=== PATIENT | female | born 1940 | race African-American/Black ===

== ENCOUNTER 2017-02-18 12:10 | Observation (INO) | payer MEDICARE, OTHER ==
[~2017-02-18] VITALS: Ht 175.3 cm; Wt 56.3 kg
[~2017-02-18 12:10] MED LIST: DOXY100T PO; HYDR0.2C3 TOP; SULF1TAB47 PO; Z.0.NO CURRENT MEDS
[2017-02-18 12:12] VITALS: BP 122/64; PULSE 94; RESP 20; TEMP 98.9; O2SAT 98
--- NOTE | 2017-02-18 12:16 | PD ---
Physical Exam Time Seen by Provider: 12:15 Narrative 76 y/o female here for evaluation of hemoptysis, urinary incontinence for 1-[address] Ortiz. Vital signs reviewed. Seen at triage desk. Awaiting bed placement. Data Data Last Documented VS Vital Signs Date Time Temp Pulse Resp B/P Pulse Ox O2 Delivery O2 Flow Rate FiO2 02/18/17 13:00 85 18 108/66 100 Room Air 02/18/17 12:12 98.9 Orders Complete Blood Count With Diff (02/18/17 12:25) Comprehensive Metabolic Panel (02/18/17 12:25) Act Partial Throm Time (Ptt) (02/18/17 12:25) Prothrombin Time / Inr (Pt) (02/18/17 12:25) Blood Culture (02/18/17 12:25) Iv Access Insert/Monitor (02/18/17 12:25) Ecg Monitoring (02/18/17 12:25) Oximetry (02/18/17 12:25) Oxygen Administration (02/18/17 12:25) Chest, Single Ap (02/18/17 12:25) Sodium Chloride 0.9% Flush (Ns Flush) (02/18/17 12:30) Labs Laboratory Tests Test 02/18/17 12:30 White Blood Count 13.5 TH/MM3 Red Blood Count 4.55 MIL/MM3 Hemoglobin 11.5 GM/DL Hematocrit 35.4 % Mean Corpuscular Volume 77.9 FL Mean Corpuscular Hemoglobin 25.2 PG Mean Corpuscular Hemoglobin 32.4 % Concent Red Cell Distribution Width 15.1 % Platelet Count 504 TH/MM3 Mean Platelet Volume 6.7 FL Neutrophils (%) (Auto) 72.9 % Lymphocytes (%) (Auto) 19.8 % Monocytes (%) (Auto) 6.8 % Eosinophils (%) (Auto) 0.2 % Basophils (%) (Auto) 0.3 % Neutrophils # (Auto) 9.9 TH/MM3 Lymphocytes # (Auto) 2.7 TH/MM3 Monocytes # (Auto) 0.9 TH/MM3 Eosinophils # (Auto) 0.0 TH/MM3 Basophils # (Auto) 0.0 TH/MM3 CBC Comment DIFF FINAL Differential Comment MDM Medical Record Reviewed: Yes Supervised Visit with GLORIA: No Scripts No Active Prescriptions or Reported Meds Adrian Remy Feb 18, 2017 12:16
[2017-02-18 12:30] VITALS: O2SAT 100
--- NOTE | 2017-02-18 12:32 | PD ---
HPI Chief Complaint: Bleeding Time Seen by Provider: 12:25 Travel History International Travel<30 days: No Contact w/Intl Traveler<30days: No Traveled to known affect area: No History of Present Illness HPI 76-year-old female patient presents to the ER sent in by Dr. Ortiz, according to her son, she has been coughing up blood for several days and had initially had chest x-ray done and then a CT of the chest for follow-up, and he was told that there was some abnormality with her chest. However, he is not aware of what is the problem. She has been feeling more tired than usual. She denies any chest pains, fevers, or any other symptoms. Modifying Factors: None Associated Signs & Symptoms: Hemoptysis, abnormal chest x-ray Risk Factors: None PFSH Past Medical History High Cholesterol: Yes Hypertension: Yes Social History Alcohol Use: No Tobacco Use: No Substance Use: No Allergies-Medications (Allergen,Severity, Reaction): Coded Allergies: No Known Allergies (Verified , 02/18/17) Reported Meds & Prescriptions Reported Meds & Active Scripts Active No Active Prescriptions or Reported Medications Review of Systems Except as stated in HPI: all other systems reviewed are Neg Physical Exam Narrative GENERAL: Well-developed elderly -[place] female patient currently in mild distress. Awake and oriented 3. SKIN: Focused skin assessment warm/dry. HEAD: Atraumatic. Normocephalic. EYES: Pupils equal and round. No scleral icterus. No injection or drainage. ENT: No nasal bleeding or discharge. Mucous membranes pink and moist. NECK: Trachea midline. No JVD. CARDIOVASCULAR: Regular rate and rhythm. No murmur appreciated. RESPIRATORY: No accessory muscle use. Clear to auscultation. Breath sounds equal bilaterally. GASTROINTESTINAL: Abdomen soft, non-tender, nondistended. Hepatic and splenic margins not palpable. MUSCULOSKELETAL: No obvious deformities. No clubbing. No cyanosis. No edema. NEUROLOGICAL: Awake and alert. No obvious cranial nerve deficits. Motor grossly within normal limits. Normal speech. PSYCHIATRIC: Appropriate mood and affect; insight and judgment normal. Data Data Last Documented VS Vital Signs Date Time Temp Pulse Resp B/P Pulse Ox O2 Delivery O2 Flow Rate FiO2 02/18/17 13:00 85 18 108/66 100 Room Air 02/18/17 12:12 98.9 Orders Complete Blood Count With Diff (02/18/17 12:25) Comprehensive Metabolic Panel (02/18/17 12:25) Act Partial Throm Time (Ptt) (02/18/17 12:25) Prothrombin Time / Inr (Pt) (02/18/17 12:25) Blood Culture (02/18/17 12:25) Iv Access Insert/Monitor (02/18/17 12:25) Ecg Monitoring (02/18/17 12:25) Oximetry (02/18/17 12:25) Oxygen Administration (02/18/17 12:25) Chest, Single Ap (02/18/17 12:25) Sodium Chloride 0.9% Flush (Ns Flush) (02/18/17 12:30) Ceftriaxone Inj (Rocephin Inj) (02/18/17 13:46) Azithromycin Inj (Zithromax Inj) (02/18/17 13:46) Labs Laboratory Tests Test 02/18/17 12:30 White Blood Count 13.5 TH/MM3 Red Blood Count 4.55 MIL/MM3 Hemoglobin 11.5 GM/DL Hematocrit 35.4 % Mean Corpuscular Volume 77.9 FL Mean Corpuscular Hemoglobin 25.2 PG Mean Corpuscular Hemoglobin 32.4 % Concent Red Cell Distribution Width 15.1 % Platelet Count 504 TH/MM3 Mean Platelet Volume 6.7 FL Neutrophils (%) (Auto) 72.9 % Lymphocytes (%) (Auto) 19.8 % Monocytes (%) (Auto) 6.8 % Eosinophils (%) (Auto) 0.2 % Basophils (%) (Auto) 0.3 % Neutrophils # (Auto) 9.9 TH/MM3 Lymphocytes # (Auto) 2.7 TH/MM3 Monocytes # (Auto) 0.9 TH/MM3 Eosinophils # (Auto) 0.0 TH/MM3 Basophils # (Auto) 0.0 TH/MM3 CBC Comment DIFF FINAL Differential Comment Prothrombin Time 10.7 SEC Prothromb Time International 1.0 RATIO Ratio Activated Partial 27.3 SEC Thromboplast Time Sodium Level 137 MEQ/L Potassium Level 3.8 MEQ/L Chloride Level 103 MEQ/L Carbon Dioxide Level 27.3 MEQ/L Anion Gap 7 MEQ/L Blood Urea Nitrogen 7 MG/DL Creatinine 0.71 MG/DL Estimat Glomerular Filtration 97 ML/MIN Rate Random Glucose 107 MG/DL Calcium Level 9.3 MG/DL Total Bilirubin 0.5 MG/DL Aspartate Amino Transf 10 U/L (AST/SGOT) Alanine Aminotransferase 10 U/L (ALT/SGPT) Alkaline Phosphatase 136 U/L Total Protein 7.5 GM/DL Albumin 3.0 GM/DL MDM Medical Decision Making Medical Screen Exam Complete: Yes Emergency Medical Condition: Yes Medical Record Reviewed: Yes Interpretation(s) Laboratory Tests Test 02/18/17 12:30 White Blood Count 13.5 TH/MM3 (4.0-11.0) Hemoglobin 11.5 GM/DL (11.6-15.3) Mean Corpuscular Volume 77.9 FL (80.0-100.0) Mean Corpuscular Hemoglobin 25.2 PG (27.0-34.0) Platelet Count 504 TH/MM3 (150-450) Mean Platelet Volume 6.7 FL (7.0-11.0) Neutrophils (%) (Auto) 72.9 % (16.0-70.0) Neutrophils # (Auto) 9.9 TH/MM3 (1.8-7.7) Random Glucose 107 MG/DL (74-106) Aspartate Amino Transf 10 U/L (15-37) (AST/SGOT) Alkaline Phosphatase 136 U/L (45-117) Albumin 3.0 GM/DL (3.4-5.0) Last 24 hours Impressions Chest X-Ray 02/18/17 1225 Signed Impressions: Service Date/Time: Saturday, February 18, 2017 12:33 - CONCLUSION: 1. 6.7 x 6.6 cm mass on the right. Differential considerations are given above. CT imaging with contrast is warranted for further assessment. Adonis Hutchison MD Differential Diagnosis Hemoptysispneumonia versus bronchitis versus PE versus other acute pulmonary processes Narrative Course Chest x-ray shows a right sided pulmonary mass. A review of patient's Watson exam shows that a CTA had been done last week that shows that this is a mass rather than a aneurysm. She does have a white count of 13 and at this point, IV antibiotics were initiated as a precaution. My plan would be to admit the patient for further evaluation of mass. Case is discussed with Dr. Tiwari for admission. Diagnosis Primary Impression: Pulmonary mass Additional Impression: Pneumonia Admitting Information Admitting Physician Requests: Admit Scripts No Active Prescriptions or Reported Meds Jennifer Lundberg MD Feb 18, 2017 12:32
[2017-02-18 13:00] VITALS: BP 108/66; PULSE 85; RESP 18; O2SAT 100
--- NOTE | 2017-02-18 13:05 | RADRPT ---
EXAM DATE/TIME: 02/18/2017 12:33 [facility] COMPARISON: No previous studies available for comparison. INDICATIONS : Cough. patient has been coughing up blood on and off for the past three weeks. MEDICAL HISTORY : Hypertension. Hypercholesterolemia. SURGICAL HISTORY : None. ENCOUNTER: Initial ACUITY: 3 weeks PAIN SCORE: 0/10 LOCATION: Bilateral chest FINDINGS: The examination demonstrates a smoothly margined 6.7 x 6.6 cm right paratracheal mass. Differential c onsiderations would include malignancy versus aneurysm. CT of the thorax with contrast is warranted f or further assessment. The lungs are otherwise clear. The heart is normal in size. CONCLUSION: 1. 6.7 x 6.6 cm mass on the right. Differential considerations are given above. CT imaging with contr ast is warranted for further assessment. Adonis Hutchison MD on February 18, 2017 at 13:02 Board Certified Radiologist. This report was verified electronically.
[2017-02-18 13:10] LABS: AUTOMATED NEUTROPHIL # 9.9 TH/MM3 (1.8-7.7); BASOPHIL % 0.3 % (0.0-2.0); EOSINOPHIL % 0.2 % (0.0-4.0); HEMATOCRIT 35.4 % (35.0-46.0); HEMO FLAGS DIFF FINAL; LYMPH % 19.8 % (9.0-44.0); LYMPHOCYTE # 2.7 TH/MM3 (1.0-4.8); MEAN CELL VOLUME 77.9 FL (80.0-100.0); MEAN CORPUSCULAR HEMOGLOBIN 25.2 PG (27.0-34.0); MEAN CORPUSCULAR HGB CONC 32.4 % (32.0-36.0); MONO % 6.8 % (0.0-8.0); NEUT % 72.9 % (16.0-70.0); PLATELET COUNT 504 TH/MM3 (150-450); RED BLOOD COUNT 4.55 MIL/MM3 (4.00-5.30); RED CELL DISTRIBUTION WIDTH 15.1 % (11.6-17.2); WHITE BLOOD COUNT 13.5 TH/MM3 (4.0-11.0)
[2017-02-18 13:20] LABS: APTT (PATIENT) 27.3 SEC (24.3-30.1); PROTHROMBIN TIME - PATIENT 10.7 SEC (9.8-11.6)
[2017-02-18 13:28] LABS: ANION GAP 7 MEQ/L (5-15); AST (GOT) 10 U/L (15-37); BICARBONATE 27.3 MEQ/L (21.0-32.0); BLOOD UREA NITROGEN 7 MG/DL (7-18); CHLORIDE 103 MEQ/L (98-107); GLOMERULAR FILTRATION RATE 97 ML/MIN (>89); POTASSIUM 3.8 MEQ/L (3.5-5.1); SODIUM (NA) 137 MEQ/L (136-145)
[2017-02-18 13:29] LABS: ALT (GPT) 10 U/L (10-53)
[2017-02-18 13:31] LABS: ALKALINE PHOSPHATASE 136 U/L (45-117); TOTAL BILIRUBIN ADULT 0.5 MG/DL (0.2-1.0)
[2017-02-18] MEDS ORDERED: AZITHROMYCIN INJ 500 MG in SODIUM CHLOR 0.9% 250 ML INJ 250 ML IV STA (13:46)
[2017-02-18] MEDS ORDERED: cefTRIAXone INJ 2,000 MG in SODIUM CHLORIDE 0.9% INJ 100 ML IV STA (13:46)
--- NOTE | 2017-02-18 15:23 | HHI.HP ---
[facility] Guillermo Ortiz MD Admission Diagnosis pulmonary mass/pneumonia Diagnoses: (1) Hemoptysis Diagnosis: Principal (2) Pulmonary mass Diagnosis: Principal Chief Complaint: Hemoptysis Travel History International Travel<30 Days: No Contact w/Intl Traveler <30 Da: No Traveled to Known Affected Are: No History of Present Illness Patient is a very pleasant 76-year-old female with baseline dementia. Patient' s daughter states her knee followed some commands, but unable to obtain history from her. Called up the son who states that prior to this past 3 weeks patient was pretty independent taking care of herself but noticed that this past 2 weeks as stated is deteriorating. Son stated that patient was noted to be coughing up blood on and off for the past 2 weeks now describe the sputum with specks of blood. She was seen as an outpatient with her primary care physician for she was treated with some cough medications. Son stated no fever or chills no night sweats.. An x-ray was done 2 weeks ago which showed some suspicious mass and she was sent to [facility] for a chest CT. We are able to obtain a chest CT from [facility] faxed to us and it showed a 6.7 x 5.3 cm soft tissue mass in the right upper lobe abutting the visceral pleural. sounds like questionable by Patient was brought in here by son because of increasing generalized weakness and hemoptysis. He also described that patient has been incontinent this past few days. Patient now admitted for further workup. And management. CT of the thorax with contrast done on February 14 shows 6.7 x 5.3 cm soft tissue mass in the right upper lobe with early cavitation both superiorly and inferiorly. Pneumonia versus malignancy as differential. numerous small tendrils extend to the visceral pleura. 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 1.1 cm right paratracheal lymph node. No evidence of pleural effusion. Review of Systems ROS Limitations: Poor Historian Constitutional: DENIES: Diaphoretic episodes, Fatigue, Fever, Weight gain, Weight loss, Chills, Dizziness, Change in appetite, Night Sweats Endocrine: DENIES: Abnorml menstrual pattern, Heat/cold intolerance, Polydipsia , Polyuria, Polyphagia Eyes: DENIES: Blurred vision, Diplopia, Eye inflammation, Eye pain, Vision loss , Photosensitivity, Double Vision Ears, nose, mouth, throat: DENIES: Tinnitus, Hearing loss, Vertigo, Nasal discharge, Oral lesions, Throat pain, Hoarseness, Ear Pain, Running Nose, Epistaxis, Sinus Pain, Toothache, Odynophagia Respiratory: COMPLAINS OF: Cough, Hemoptysis Cardiovascular: DENIES: Chest pain, Palpitations, Syncope, Dyspnea on Exertion , PND, Lower Extremity Edema, Orthopnea, Claudication Gastrointestinal: DENIES: Abdominal pain, Black stools, Bloody stools, Constipation, Diarrhea, Nausea, Vomiting, Difficulty Swallowing, Anorexia Genitourinary: COMPLAINS OF: Urinary incontinence Musculoskeletal: DENIES: Joint pain, Muscle aches, Stiffness, Joint Swelling, Back pain, Neck pain Integumentary: DENIES: Abnormal pigmentation, Pruritus, Rash, Nail changes, Breast masses, Breast skin changes, Nipple discharge Hematologic/lymphatic: DENIES: Bruising, Lymphadenopathy Immunologic/allergic: DENIES: Eczema, Urticaria Neurologic: COMPLAINS OF: Abnormal gait (generalized weakness) Psychiatric: DENIES: Anxiety, Confusion, Mood changes, Depression, Hallucinations, Agitation, Suicidal Ideation, Homicidal Ideation, Delusions Past Family Social History Past Medical History None Past Surgical History No major surgeries Reported Medications [id number] multivitamins Allergies: Coded Allergies: No Known Allergies (Verified , 02/18/17) Family History Noncontributory Social History History of smoking Denies alcohol or substance abuse Physical Exam Vital Signs Vital Signs Date Time Temp Pulse Resp B/P Pulse Ox O2 Delivery O2 Flow Rate FiO2 02/18/17 13:00 85 18 108/66 100 Room Air 02/18/17 12:30 100 Room Air 02/18/17 12:30 100 Room Air 02/18/17 12:12 98.9 94 20 122/64 98 Room Air Physical Exam GENERAL: Awake appears weak oriented only to person in no apparent distress. SKIN: No rashes, ecchymoses or lesions. Cool and dry. HEAD: Atraumatic. Normocephalic. No temporal or scalp tenderness. EYES: Pupils equal round and reactive. Extraocular motions intact. No scleral icterus. ENT: Nose without bleeding, Throat without erythema, tonsillar hypertrophy or exudate. Uvula midline. Airway patent. NECK: Trachea midline. No JVD or lymphadenopathy. Supple, nontender, no meningeal signs. No supraclavicular or axillary lymphadenopathy CARDIOVASCULAR: Regular rate and rhythm without murmurs, gallops, or rubs. RESPIRATORY: Clear to auscultation. Breath sounds equal bilaterally. No wheezes , rales, or rhonchi. GASTROINTESTINAL: Abdomen soft, non-tender, nondistended.No guarding. MUSCULOSKELETAL: Extremities without clubbing, cyanosis, or edema. No joint tenderness, effusion, or edema noted. No calf tenderness. Negative Homans sign bilaterally. NEUROLOGICAL: Awake and alert. Cranial nerves II through XII intact. Moves all extremities spontaneously unable to bear weight. Slow but clear Laboratory Laboratory Tests Test 02/18/17 12:30 White Blood Count 13.5 Red Blood Count 4.55 Hemoglobin 11.5 Hematocrit 35.4 Mean Corpuscular Volume 77.9 Mean Corpuscular Hemoglobin 25.2 Mean Corpuscular Hemoglobin 32.4 Concent Red Cell Distribution Width 15.1 Platelet Count 504 Mean Platelet Volume 6.7 Neutrophils (%) (Auto) 72.9 Lymphocytes (%) (Auto) 19.8 Monocytes (%) (Auto) 6.8 Eosinophils (%) (Auto) 0.2 Basophils (%) (Auto) 0.3 Neutrophils # (Auto) 9.9 Lymphocytes # (Auto) 2.7 Monocytes # (Auto) 0.9 Eosinophils # (Auto) 0.0 Basophils # (Auto) 0.0 CBC Comment DIFF FINAL Differential Comment Prothrombin Time 10.7 Prothromb Time International 1.0 Ratio Activated Partial 27.3 Thromboplast Time Sodium Level 137 Potassium Level 3.8 Chloride Level 103 Carbon Dioxide Level 27.3 Anion Gap 7 Blood Urea Nitrogen 7 Creatinine 0.71 Estimat Glomerular Filtration 97 Rate Random Glucose 107 Calcium Level 9.3 Total Bilirubin 0.5 Aspartate Amino Transf 10 (AST/SGOT) Alanine Aminotransferase 10 (ALT/SGPT) Alkaline Phosphatase 136 Total Protein 7.5 Albumin 3.0 Date/Time Procedure Status Source Growth 02/18/17 12:30 Aerobic Blood Culture Received Blood Peripheral Pending 02/18/17 12:30 Anaerobic Blood Culture Received Blood Peripheral Pending Result Diagram: 02/18/17 1230 02/18/17 1230 Imaging Last Impressions Chest X-Ray 02/18/17 1225 Signed Impressions: Service Date/Time: Saturday, February 18, 2017 12:33 - CONCLUSION: 1. 6.7 x 6.6 cm mass on the right. Differential considerations are given above. CT imaging with contrast is warranted for further assessment. Adonis Hutchison MD Assessment and Plan Assessment and Plan 76-year-old female presenting with increasing weakness progressively for the past 2 days Presented with Hemoptysis with a suspicious right upper lung lobe mass with cavitation. on report amenable to CT biopsy Pulmonary consult- will defer to whether to proceed with CT-guided biopsy versus bronchoscopy. Send sputum for studies AFB cytology, Gram stain SERVICE DELIVERY MANAGEMENT CONSULTANT. Generalized weakness- son lately stated patient was also noted to be incontinent d/w him that this may be from her weakness. Monitor Start patient on IV fluids. PT consult in a.m. OT consult in a.m. Nutrition consult in a.m. Get a head CT. Get a UA. 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 incidental finding on chest CT Starting Dementia- d/w son. PPI for GI prophylaxis Bilateral teds for DVT prophylaxis Discussed with son on the phone - regarding work up Discussed Condition With Son Physician Certification 2 Midnight Certification Type: Admission for Inpatient Services Order for Inpatient Services The services are ordered in accordance with Medicare regulations or non- Medicare payer requirements, as applicable. In the case of services not specified as inpatient-only, they are appropriately provided as inpatient services in accordance with the 2-midnight benchmark. Estimated LOS (days): 3 days is the estimated time the patient will need to remain in the hospital, assuming treatment plan goals are met and no additional complications. Post-Hospital Plan: Not yet determined Amada Tiwari MD Feb 18, 2017 15:23
[2017-02-18 16:56] LABS: BLOOD, URINE NEG (NEG); GLUCOSE,URINE NEG (NEG); KETONE, URINE NEG (NEG); MUCUS URINE FEW /lpf (OCC); NITRITE,URINE NEG (NEG); SQUAMOUS EPITHELIAL CELL URINE <1 /hpf (0-5); URINE COLOR YELLOW (YELLW/STRAW)
[2017-02-18 16:58] LABS: COMMENT (UR) CATH-CULT NOT IND; CULTURE IF INDICATED CATH CULTURE NOT IND
--- NOTE | 2017-02-18 17:31 | RADRPT ---
EXAM DATE/TIME: 02/18/2017 17:10 [facility] COMPARISON: No previous studies available for comparison. INDICATIONS : Generalize weakness, RADIATION DOSE: 33.77 CTDIvol (mGy) MEDICAL HISTORY : Hypertension. Alzheimer's. Hemoptysis,POSSIBLE LUNG MASS SURGICAL HISTORY : None. ENCOUNTER: Initial ACUITY: 1 day PAIN SCALE: 0/10 LOCATION: cranial TECHNIQUE: Multiple contiguous axial images were obtained of the head. Using automated exposure control and adj ustment of the mA and/or kV according to patient size, radiation dose was kept as low as reasonably a chievable to obtain optimal diagnostic quality images. DICOM format image data is available electro nically for review and comparison. FINDINGS: There is no evidence for intracranial hemorrhage, mass effect, mass lesions, or edema. The visualize d bony structures appear intact. Slight degree of brain atrophy is seen. Slight periventricular whit e matter changes are seen nonspecific mostly consistent with chronic small vessel ischemic changes. There are no signs of acute infarction for technique. CONCLUSION: Slight atrophic and small vessel ischemic changes without any evidence for acute hemorrhage or mass effect. Duc Pride MD on February 18, 2017 at 17:28 Board Certified Radiologist. This report was verified electronically.
[2017-02-18 18:00] VITALS: BP 112/65; PULSE 82; RESP 20; TEMP 96.8; O2SAT 98
[2017-02-18] MEDS: POTASSIUM CHLORIDE INJ 10 MEQ in DEXT 5%-NACL 0.9% 1000 ML INJ 1,000 ML IV SCH (18:51)
[2017-02-18] MEDS: SODIUM CHLORIDE 0.9% FLUSH 10 ML FLUSH IVF PRN (18:52)
[2017-02-18 20:00] VITALS: BP 112/71; PULSE 81; RESP 20; TEMP 97.6; O2SAT 99
--- NOTE | 2017-02-18 22:12 | MB ---
cc: ANTWON BENTON DATE OF CONSULTATION 02/18/[address] Tiwari. REASON FOR CONSULTATION Evaluate for lung mass and hemoptysis. HISTORY OF THE PRESENT ILLNESS Ms. Griffin is a 76-year -[place] female with history of dementia. The patient was brought by her son to the hospital. She has 2 weeks history of deteriorating in her health. Normally she lives alone. She has a cough with specks of blood in it. Did not have any fever. She has no night sweats. The patient recently had a CT scan of the chest done at [facility] which showed right upper lobe peripheral 6.7 x 6.0 cm mass. She was admitted in the hospital. She denies any shortness of breath. No cough or sputum production. The patient is a poor historian. LABORATORY DATA She had a workup done. Her CBC showed WBC count 13.5, hemoglobin 11.5, hematocrit 35.4, MCV 77, platelet count 504. Sodium 137, potassium 3.8, chloride 103, CO2 27, BUN 7.0, creatinine 0.71. INR 1.0. IMAGING CT scan of the head shows atrophic and small vessel ischemic changes. X-ray of the chest shows lung mass. PAST MEDICAL HISTORY Significant for history of hypertension. MEDICATIONS She is currently takin. Rocephin. 2. Zithromax. ALLERGIES NO KNOWN DRUG ALLERGIES. SOCIAL HISTORY She has history of smoking in the past. Denies alcohol abuse. FAMILY HISTORY She has a son and daughter. REVIEW OF SYSTEMS The patient is a poor historian, states she does not have any weight loss. Denies any cough or sputum production. No fever or chills. Denies any seizure, stroke or epilepsy. PHYSICAL EXAMINATION GENERAL: Elderly frail female, mild short of breath. VITAL SIGNS: Blood pressure 122/64, heart rate 85, respirations 20, temperature 98.9. HEENT: Pupils are equal and reactive to light. Oral mucosa, nasal mucosa normal. NECK: Supple. JVP not raised. CHEST: Air entry equal bilaterally. No rhonchi. CARDIOVASCULAR: S1, S2 normal. ABDOMEN: Benign. EXTREMITIES: No edema. IMPRESSION 1. Large right upper lobe lung mass concerning for malignancy. However infection needs to be ruled out. 2. Mild hemoptysis. 3. Hypertension. PLAN I discussed with the patient. She is not able to make any decision. I tried to reach her son, Iain Tang at the listed number [phone] and he is not available. We will discuss with him and make the decision. The patient is going to need a CT-guided biopsy if the family wants to proceed with it. In the meantime we will continue antibiotics. Further treatment will depend on the course in the hospital. Thank you Dr. Tiwari for this consultation. MD SETH Robledo/WINIFRED /6:23 PM /10:02 PM
[2017-02-19] VITALS: BP 144/66; PULSE 86; RESP 22; TEMP 97; O2SAT 99
[2017-02-19 08:00] VITALS: BP 111/63; PULSE 82; RESP 16; TEMP 96.9; O2SAT 100
--- NOTE | 2017-02-19 08:16 | HHI.PR ---
Subjective Remarks patient up in the chair, smiling with no complains of chest discomfort minimal cough, no reported hemoptysis Objective Vitals Vital Signs Date Time Temp Pulse Resp B/P Pulse Ox O2 Delivery O2 Flow Rate FiO2 02/19/17 00:00 97.0 86 22 144/66 99 02/18/17 20:00 97.6 81 20 112/71 99 02/18/17 18:00 96.8 82 20 112/65 98 02/18/17 13:00 85 18 108/66 100 Room Air 02/18/17 12:30 100 Room Air 02/18/17 12:30 100 Room Air 02/18/17 12:12 98.9 94 20 122/64 98 Room Air I/O 02/18/17 02/18/17 02/18/17 02/19/17 02/19/17 02/19/17 07:00 15:00 23:00 07:00 15:00 23:00 Intake Total 293 ml 240 ml Balance 293 ml 240 ml Intake Oral 240 ml 240 ml IV Total 53 ml 0 ml # Voids 1 1 Result Diagram: 02/18/17 1230 02/18/17 1230 Imaging Last Impressions Chest X-Ray 02/18/17 1225 Signed Impressions: Service Date/Time: Saturday, February 18, 2017 12:33 - CONCLUSION: 1. 6.7 x 6.6 cm mass on the right. Differential considerations are given above. CT imaging with contrast is warranted for further assessment. Adonis Hutchison MD Head CT 02/18/17 0000 Signed Impressions: Service Date/Time: Saturday, February 18, 2017 17:10 - CONCLUSION: Slight atrophic and small vessel ischemic changes without any evidence for acute hemorrhage or mass effect. Duc Pride MD CT of the thorax with contrast done on February 14 shows 6.7 x 5.3 cm soft tissue mass in the right upper lobe with early cavitation both superiorly and inferiorly. Pneumonia versus malignancy as differential. numerous small tendrils extend to the visceral pleura. 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 1.1 cm right paratracheal lymph node. No evidence of pleural effusion. Objective Remarks awake and alert oriented to person, speech soft but clear, ff all commands, pleasant , not oriented to place anicteric lungs- no rales or wheezes regular rhythm abdomen soft, nontendr extremities no edema moves all extremities spontaneously, gait slow but steady A/P Problem List: (1) Hemoptysis ICD Code: R04.2 Status: Acute (2) Pulmonary mass ICD Code: R91.8 Status: Acute Assessment and Plan 76-year-old female presenting with increasing weakness progressively for the past 2 days Presented with Hemoptysis with a suspicious right upper lung lobe mass with cavitation. on report amenable to CT biopsy Pulmonary - Dr. Davies saw patient will defer to whether to proceed with CT- guided biopsy versus bronchoscopy.- he discussed with son Send sputum for studies AFB cytology, Gram stain ENTERTAINMENT & MEDIA CORRESPONDENT.- pending per Pulmonary- treat as infection- continue on rocephin and zithromax Generalized weakness- son lately stated patient was also noted to be incontinent Baseline starting Dementia d/w him that this may be from her weakness. 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 incidental finding on chest CT 02/14- OP PPI for GI prophylaxis Bilateral teds for DVT prophylaxis Amada Tiwari MD Feb 19, 2017 08:16
[2017-02-19] MEDS ORDERED: ENOXAPARIN SODIUM 30 MG/0.3 ML SYRINGE SQ SCH (10:00)
[2017-02-19] MEDS: AZITHROMYCIN 250 MG TAB PO SCH (11:48)
[2017-02-19 12:00] VITALS: BP 109/65; PULSE 90; RESP 16; TEMP 96; O2SAT 99
[2017-02-19] MEDS: cefTRIAXone INJ 1,000 MG in SODIUM CHLORIDE 0.9% INJ 100 ML IV SCH (12:21)
[2017-02-19] MEDS: POTASSIUM CHLORIDE INJ 10 MEQ in DEXT 5%-NACL 0.9% 1000 ML INJ 1,000 ML IV SCH (14:06)
[2017-02-19 16:00] VITALS: BP 126/62; PULSE 84; RESP 17; TEMP 96.2; O2SAT 100
[2017-02-19 20:00] VITALS: BP 120/58; PULSE 82; RESP 17; TEMP 97.4; O2SAT 99
--- NOTE | 2017-02-19 20:00 | HHI.PR ---
Subjective Remarks 76 YO frail AA female with large lung mass No sob No fever DW son Iain Tang on Phone He understads her frail condition and does't want any bx or therapy if cancer However , he wants her to go to [place] Objective Vital Signs Vital Signs Date Time Temp Pulse Resp B/P Pulse Ox O2 Delivery O2 Flow Rate FiO2 02/19/17 16:00 96.2 84 17 126/62 100 02/19/17 12:00 96.0 90 16 109/65 99 02/19/17 08:00 96.9 82 16 111/63 100 02/19/17 00:00 97.0 86 22 144/66 99 02/18/17 20:00 97.6 81 20 112/71 99 I/O 02/18/17 02/18/17 02/18/17 02/19/17 02/19/17 02/19/17 07:00 15:00 23:00 07:00 15:00 23:00 Intake Total 293 ml 240 ml 720 ml Balance 293 ml 240 ml 720 ml Intake Oral 240 ml 240 ml 720 ml IV Total 53 ml 0 ml # Voids 1 1 3 # Bowel Movements 0 Result Diagram: 02/18/17 1230 02/18/17 1230 Objective Remarks GENERAL: Frail elderly female, NAD SKIN: Warm and dry. HEAD: Normocephalic. EYES: No scleral icterus. No injection or drainage. NECK: Supple, trachea midline. No JVD or lymphadenopathy. CARDIOVASCULAR: Regular rate and rhythm without murmurs, gallops, or rubs. RESPIRATORY: Breath sounds equal bilaterally. No accessory muscle use. GASTROINTESTINAL: Abdomen soft, non-tender, nondistended. MUSCULOSKELETAL: No cyanosis, or edema. BACK: Nontender without obvious deformity. No CVA tenderness. A/P Assessment and Plan Large right lung mass, likly malignant Pneumonia Hemoptysis, improved HTN Dementia PLAN: Cont Abx DW son, Iain Tang, no bx DC plans Robert Davies MD Feb 19, 2017 20:00
[2017-02-19] MEDS: SODIUM CHLORIDE 0.9% FLUSH 10 ML FLUSH IVF PRN (21:30)
[2017-02-20] MEDS: cefTRIAXone INJ 1,000 MG in SODIUM CHLORIDE 0.9% INJ 100 ML IV SCH (07:46)
[2017-02-20] MEDS: AZITHROMYCIN 250 MG TAB PO SCH (07:47)
[2017-02-20 08:00] VITALS: BP 107/55; PULSE 74; RESP 17; TEMP 97.6; O2SAT 97
--- NOTE | 2017-02-20 09:49 | HHI.PR ---
Subjective Remarks no complains patient up side of the bed having breakfast pleasant, denies any more hemoptysis, no no swallowing difficulty Objective Vitals Vital Signs Date Time Temp Pulse Resp B/P Pulse Ox O2 Delivery O2 Flow Rate FiO2 02/20/17 08:00 97.6 74 17 107/55 97 02/19/17 20:00 97.4 82 17 120/58 99 02/19/17 16:00 96.2 84 17 126/62 100 02/19/17 12:00 96.0 90 16 109/65 99 I/O 02/19/17 02/19/17 02/19/17 02/20/17 02/20/17 02/20/17 07:00 15:00 23:00 07:00 15:00 23:00 Intake Total 240 ml 720 ml 240 ml 415 ml Output Total 1 ml Balance 240 ml 720 ml 239 ml 415 ml Intake Oral 240 ml 720 ml 240 ml 240 ml IV Total 0 ml 0 ml 175 ml Output Urine Total 1 ml # Voids 1 3 4 # Bowel Movements 0 3 Result Diagram: 02/18/17 1230 02/18/17 1230 Imaging Last Impressions Chest X-Ray 02/18/17 1225 Signed Impressions: Service Date/Time: Saturday, February 18, 2017 12:33 - CONCLUSION: 1. 6.7 x 6.6 cm mass on the right. Differential considerations are given above. CT imaging with contrast is warranted for further assessment. Adonis Hutchison MD Head CT 02/18/17 0000 Signed Impressions: Service Date/Time: Saturday, February 18, 2017 17:10 - CONCLUSION: Slight atrophic and small vessel ischemic changes without any evidence for acute hemorrhage or mass effect. Duc Pride MD Objective Remarks awake and alert oriented to person, speech soft but clear, ff all commands, pleasant , oriented to person, "here" anicteric lungs- no rales or wheezes regular rhythm abdomen soft, nontender extremities no edema moves all extremities spontaneously A/P Problem List: (1) Hemoptysis ICD Code: R04.2 Status: Acute (2) Pulmonary mass ICD Code: R91.8 Status: Acute Assessment and Plan 76-year-old female presenting with increasing weakness progressively for the past 2 days Presented with Right upper lung lobe mass with cavitation. very suspicious for malignancy Pulmonary - Dr. 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 incidental finding on chest CT 02/14- OP DC planning- d/w son at length - regarding hospice evaluation- agrees to know more about hospice services Son states she lives with him. at one point.Now in a dementia unit- per son- patient can be very aggressive CM- working on SNF- [facility] today- patient will be ff by [facility] Amada Tiwari MD Feb 20, 2017 09:48
[2017-02-20 12:00] VITALS: BP 107/62; PULSE 83; RESP 17; TEMP 96.1; O2SAT 98
[2017-02-20] MEDS ORDERED: AZIT250T3 PO (12:34)
[2017-02-20] MEDS ORDERED: CEFU1TAB20 PO (12:34)
--- NOTE | 2017-02-20 12:37 | HHI.DS ---
Discharge Summary Admission Date Feb 18, 2017 at 16:03 Discharge Date: Feb 20, 2017 Admitting Diagnosis pulmonary mass/pneumonia (1) Hemoptysis ICD Code: R04.2 Diagnosis: Principal (2) Pulmonary mass ICD Code: R91.8 Diagnosis: Principal Procedures none Brief History - From Admission Patient is a very pleasant 76-year-old female with baseline dementia. Patient' s daughter states her knee followed some commands, but unable to obtain history from her. Called up the son who states that prior to this past 3 weeks patient was pretty independent taking care of herself but noticed that this past 2 weeks as stated is deteriorating. Son stated that patient was noted to be coughing up blood on and off for the past 2 weeks now describe the sputum with specks of blood. She was seen as an outpatient with her primary care physician for she was treated with some cough medications. Son stated no fever or chills no night sweats.. An x-ray was done 2 weeks ago which showed some suspicious mass and she was sent to [place] for a chest CT. We are able to obtain a chest CT from [place] faxed to us and it showed a 6.7 x 5.3 cm soft tissue mass in the right upper lobe abutting the visceral pleural. sounds like questionable by Patient was brought in here by son because of increasing generalized weakness and hemoptysis. He also described that patient has been incontinent this past few days. Patient now admitted for further workup. And management. CT of the thorax with contrast done on February 14 shows 6.7 x 5.3 cm soft tissue mass in the right upper lobe with early cavitation both superiorly and inferiorly. Pneumonia versus malignancy as differential. numerous small tendrils extend to the visceral pleura. 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 1.1 cm right paratracheal lymph node. No evidence of pleural effusion. CBC/BMP: 02/18/17 1230 02/18/17 1230 Significant Findings Laboratory Tests Test 02/18/17 02/18/17 12:30 16:00 White Blood Count 13.5 TH/MM3 (4.0-11.0) Hemoglobin 11.5 GM/DL (11.6-15.3) Mean Corpuscular Volume 77.9 FL (80.0-100.0) Mean Corpuscular Hemoglobin 25.2 PG (27.0-34.0) Platelet Count 504 TH/MM3 (150-450) Mean Platelet Volume 6.7 FL (7.0-11.0) Neutrophils (%) (Auto) 72.9 % (16.0-70.0) Neutrophils # (Auto) 9.9 TH/MM3 (1.8-7.7) Random Glucose 107 MG/DL (74-106) Aspartate Amino Transf 10 U/L (15-37) (AST/SGOT) Alkaline Phosphatase 136 U/L (45-117) Albumin 3.0 GM/DL (3.4-5.0) Urine Mucus FEW /lpf (OCC) Imaging Last Impressions Chest X-Ray 02/18/17 1225 Signed Impressions: Service Date/Time: Saturday, February 18, 2017 12:33 - CONCLUSION: 1. 6.7 x 6.6 cm mass on the right. Differential considerations are given above. CT imaging with contrast is warranted for further assessment. Adonis Hutchison MD Head CT 02/18/17 0000 Signed Impressions: Service Date/Time: Saturday, February 18, 2017 17:10 - CONCLUSION: Slight atrophic and small vessel ischemic changes without any evidence for acute hemorrhage or mass effect. Duc Pride MD PE at Discharge awake and alert oriented to person, speech soft but clear, ff all commands, pleasant , oriented to person, "here" anicteric lungs- no rales or wheezes regular rhythm abdomen soft, nontender extremities no edema moves all extremities spontaneously Pt update on day of discharge afebrile, awake and alert, NAD lungs clear no hemoptyiss good sats Hospital Course 76-year-old female presenting with increasing weakness progressively for the past 2 days Presented with Right upper lung lobe mass with cavitation. very suspicious for malignancy Pulmonary - Dr. 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 incidental finding on chest CT 02/14- OP DC planning- d/w son at length - regarding hospice evaluation- agrees to know more about hospice services Son states she lives with him. at one point.Now in a dementia unit- per son- patient can be very aggressive CM- working on SNF- [facility] DC today- patient will be ff by [facility] Pt Condition on Discharge: Stable Discharge Disposition: Discharge to SNF Discharge Time: <= 30 minutes Discharge Instructions DIET: Follow Instructions for: As Tolerated, No Restrictions Speech Therapy-Diet Recommends: Regular Activities you can perform: Weight Bearing as Eileen Follow up Referrals: PCP Follow-up - 1 Week with [facility] New Medications: Azithromycin (Azithromycin) 250 Mg Tab 250 MG PO DAILY ATYP Days 3 Ref 0 TAB Cefuroxime (Cefuroxime) 500 Mg Tab 500 MG PO BID ATYP Days 5 TAB Amada Tiwari MD Feb 20, 2017 12:37
--- NOTE | 2017-02-20 13:42 | PD.PSY.CON ---
Provisional Diagnosis Admission Date Feb 18, 2017 at 16:03 Garrison I. Dementia with behavioral disturbances Garrison II. Deferred History of Present Illness Service Psychiatry Consult Requested By Primary Care Physician Guillermo Ortiz MD HPI The patient is a very pleasant 76-year-old woman, domiciled with his son, retired, , with psychiatric history of dementia, no previous psychotic hospitalizations, no previous suicidal attempts. Documentation review, as per Dr. Cunningham Patient's daughter states her knee followed some commands, but unable to obtain history from her. Called up the son who states that prior to this past 3 weeks patient was pretty independent taking care of herself but noticed that this past 2 weeks as stated is deteriorating. Son stated that patient was noted to be coughing up blood on and off for the past 2 weeks now describe the sputum with specks of blood. She was seen as an outpatient with her primary care physician for she was treated with some cough medications. Son stated no fever or chills no night sweats.. An x-ray was done 2 weeks ago which showed some suspicious mass and she was sent to [place] for a chest CT. We are able to obtain a chest CT from [place] faxed to us and it showed a 6.7 x 5.3 cm soft tissue mass in the right upper lobe abutting the visceral pleural. sounds like questionable by Patient was brought in here by son because of increasing generalized weakness and hemoptysis.He also described that patient has been incontinent this past few days. Patient was consulted to psychiatry to help with agitation and aggressive behavior. On somatic evaluation today patient is found eating her breakfast, she smiled very often, but doesn't engage in a conversation. However , she says that she feels fine, happy, denies suicidal or homicidal ideation. Patient is disoriented in time person and place. She does not recognize her son who is a bedside. Her son Iain Tang, he stated that the patient had a very traumatic life, never suicidal psychiatrist. He says that she might suffer of depression. Has been demented since 2004. In the last weeks he has been very difficult to take care of her due to frequent episodic agitation and aggressive behavior. Review of Systems ROS Limitations: Uncooperative Past Family Social History Coded Allergies: No Known Allergies (Verified , 02/18/17) Active Scripts Cefuroxime 500 Mg [id number] Mg PO BID 5 Days Prov:Amada Tiwari MD 02/20/17 Azithromycin 250 Mg [id number] Mg PO DAILY 3 Days Ref 0 Prov:Amada Tiwari MD 02/20/17 Current Medications Medications (Trade) Dose Ordered Sig/Leilani Route Start Time Stop Time Status Last Admin (NS Flush) 2 ml UNSCH PRN IVF 02/18/17 12:30 02/19/17 21:30 (Zithromax) 250 mg DAILY PO 02/19/17 09:00 02/23/17 08:59 02/20/17 07:47 (Lovenox Inj) 30 mg Q24H SQ 02/19/17 10:00 Hold (Ceftin) 500 mg BID PO 02/21/17 09:00 Family History No family psychiatric history Social History Patient was born and raised in [place] she lives in [place] her son, she has 4 kids, retired, , Patient's Strengths (min. 2) Family support Physical Exam No tremors, no EPS, but hypoactivity is psychomotor retardation present Vital Signs Vital Signs Date Time Temp Pulse Resp B/P Pulse Ox O2 Delivery O2 Flow Rate FiO2 02/20/17 12:00 96.1 83 17 107/62 98 02/18/17 13:00 Room Air I/O 02/19/17 02/19/17 02/20/17 08:00 16:00 00:00 Intake Total 240 ml 720 ml 240 ml Output Total 1 ml Balance 240 ml 720 ml 239 ml Lab Results Significant Findings Laboratory Tests Test 02/18/17 02/18/17 12:30 16:00 White Blood Count 13.5 TH/MM3 (4.0-11.0) Hemoglobin 11.5 GM/DL (11.6-15.3) Mean Corpuscular Volume 77.9 FL (80.0-100.0) Mean Corpuscular Hemoglobin 25.2 PG (27.0-34.0) Platelet Count 504 TH/MM3 (150-450) Mean Platelet Volume 6.7 FL (7.0-11.0) Neutrophils (%) (Auto) 72.9 % (16.0-70.0) Neutrophils # (Auto) 9.9 TH/MM3 (1.8-7.7) Random Glucose 107 MG/DL (74-106) Aspartate Amino Transf 10 U/L (15-37) (AST/SGOT) Alkaline Phosphatase 136 U/L (45-117) Albumin 3.0 GM/DL (3.4-5.0) Urine Mucus FEW /lpf (OCC) Imaging Last Impressions Chest X-Ray 02/18/17 1225 Signed Impressions: Service Date/Time: Saturday, February 18, 2017 12:33 - CONCLUSION: 1. 6.7 x 6.6 cm mass on the right. Differential considerations are given above. CT imaging with contrast is warranted for further assessment. Adonis Hutchison MD Head CT 02/18/17 0000 Signed Impressions: Service Date/Time: Saturday, February 18, 2017 17:10 - CONCLUSION: Slight atrophic and small vessel ischemic changes without any evidence for acute hemorrhage or mass effect. Duc Pride MD PE at Discharge Mental Status Examination Appearance Evidently woman, good hygiene, age appearing, non-cooperative, but calm Speech: Hesitant, Slow Orientation: Person Memory: Impaired (describe) Thought Process: Loose Association Thought Content: Bizarre thinking Hallucination Type: None Suicidal Ideation: No Homicidal Ideation: No Previous Homicide Attempts: No Judgment: Impulsive Affect: Euthymic Mood: Appropriate Motor Activity: Normal gait Assessment & Plan Problem List: (1) Dementia with behavioral disturbance Assessment & Plan: Significant evaluation patient presents signs and symptoms of severe dementia. She has been reportedly agitated and aggressive at home. Extensive support and psychoeducation provided to the patient and her son. He was explained that agitation and aggressive behavior is part of the nature and course of dementia. At the moment of this evaluation patient is calm and pleasantly demented. No agitation or aggressive behavior present. She does not meet criteria for second admission at this moment. She is now medically clear. She might benefit of a low-dose of Seroquel, 12.5 mg twice a day for behavioral control. ICD Code: F03.91 Assessment & Plan Estimated LOS: Donta Hernandez MD Feb 20, 2017 13:42
[2017-02-21] MEDS ORDERED: CEFUROXIME AXETIL 500 MG TAB PO SCH (09:00)
== END 2017-02-20 15:52 ==
LOC: NEPC 12:10 → NEDA 14:13 → UNDOADMOB 14:13 → INTOOBSV 15:11 → OBSVTOIN 15:11 → NEDA 16:03 → N07A 17:47
PROVIDERS: ADMIT Internal Medicine; ATTEND Internal Medicine
DX: R04.2 Hemoptysis (principal); R91.8 Other nonspecific abnormal finding of lung field; R53.1 Weakness; I71.9 Aortic aneurysm of unspecified site, without rupture; F03.90 Unspecified dementia, unspecified severity, without behavioral disturbance, psychotic disturbance, mood disturbance, and anxiety; J18.9 Pneumonia, unspecified organism; I10 Essential (primary) hypertension; Z87.891 Personal history of nicotine dependence
CPT/HCPCS: 70450; 71010; 80053; 81001; 85025; 85610; 85730; 87015; 87040; 96374; 96375; 97162; 97166; 99285; G0378; G8987; G8988; G8989; J0456; J0696; J3480; J7042; J7050